=== PATIENT | female | born 1970 | race Hispanic/Latino ===

== ENCOUNTER → 2017-04-20 | Outpatient (CLI) | payer OTHER ==
--- NOTE | 2017-04-20 16:35 | Diagnostic Imaging Report ---
PROCEDURE:SACRUM X-RAY TECHNIQUE:2 views of the sacrum. INDICATION:Lower back pain. Lumbar spondylosis. COMPARISON:None. FINDINGS: Mild to moderate disc space narrowing at L5-S1. Moderate severe facet arthrosis at L4-5 and L5-S1. Mild bilateral SI joint sclerosis. CONCLUSION: 1. Moderate degenerative changes at L5-S1. 2. Mild bilateral SI joint sclerosis. Dictated by: Juan Restrepo M.D. on 04/20/2017 at 16:35 Electronically approved by: Juan Restrepo M.D. on 04/20/2017 at 16:35
--- NOTE | 2017-04-20 16:37 | Diagnostic Imaging Report ---
PROCEDURE: L-SPINE COMPLETE, including bilateral obliques COMPARISON: None. INDICATIONS: LUMBAR SPONDYLOSIS, LOWER BACK PAIN FINDINGS: The lumbar spine is in anatomic alignment without evidence of fracture, spondylolisthesis, or spondylolysis. Vertebral body heights are maintained. Mild to moderate L5-S1 disc space narrowing. Moderate multilevel facet arthrosis with severe at L5-S1. The paraspinal soft tissues are normal. No bilateral neural foraminal narrowing CONCLUSION: Mild to moderate L5-S1 disc space narrowing. Moderate multilevel facet arthrosis with severe at L5-S1. Dictated by: Juan Restrepo M.D. on 04/20/2017 at 16:37 Electronically approved by: Juan Restrepo M.D. on 04/20/2017 at 16:37
== END ==
LOC: RAD 15:06
PROVIDERS: ATTEND Internal Medicine
DX: M47.816 Spondylosis without myelopathy or radiculopathy, lumbar region (principal)
CPT/HCPCS: 72110; 72220; 81025

== ENCOUNTER → 2018-07-19 | Outpatient (CLI) | payer OTHER | LOC: MAMMO 13:36 | PROVIDERS: ATTEND Internal Medicine | DX: Z12.31 Encounter for screening mammogram for malignant neoplasm of breast (principal) | CPT/HCPCS: 77067 ==

== ENCOUNTER → 2019-11-20 | Outpatient (CLI) | payer OTHER | LOC: MAMMO 08:47 | PROVIDERS: ATTEND Internal Medicine | DX: Z12.31 Encounter for screening mammogram for malignant neoplasm of breast (principal) | CPT/HCPCS: 77067 ==